=== PATIENT | male | born 1975 | race Caucasian/White ===

== ENCOUNTER 2016-06-04 20:50 | Emergency (ER) | payer OTHER ==
[2016-06-04] MEDS ORDERED: IBUPROFEN 400 MG TABLET PO ONE (21:11)
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
[2016-06-04] MEDS ORDERED: HYDROCODONE/APAP 7.5/325MG TABLET PO ONE ×2 (21:21→21:57)
--- NOTE | 2016-06-07 14:54 | CT SCAN REPORT ---
EXAM: CT OF THE CERVICAL SPINE HISTORY: FALL. TECHNIQUE: Axial CT images of the cervical spine were obtained with coronal and sagittal reconstructions. Comparison: None. FINDINGS: Evaluation of the spinal canal contents is limited due to CT technique, however, the vertebral body height and alignment is preserved. Minor degenerative changes at C5-C6. The disk spaces are otherwise maintained. Limited evaluation of the lung apices is unremarkable. IMPRESSION: NEGATIVE FOR ACUTE CERVICAL SPINE ABNORMALITY. JOB NUMBER: [id number] MTDD
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
== END 2016-06-04 22:02 | disposition home or self-care (01) ==
LOC: ER 20:50
DX: S00.93XA Contusion of unspecified part of head, initial encounter (principal); S10.93XA Contusion of unspecified part of neck, initial encounter; R41.3 Other amnesia; V86.52XA Driver of snowmobile injured in nontraffic accident, initial encounter; Y92.89 Other specified places as the place of occurrence of the external cause
CPT/HCPCS: 70450; 72125; 99283; 99284